=== PATIENT | female | born 1980 | race Hispanic/Latino ===

== ENCOUNTER 2020-05-28 10:55 | Emergency (ER) | payer OTHER ==
[~2020-05-28] VITALS: Ht 154.9 cm; Wt 72.6 kg
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
[2020-05-28] MEDS ORDERED: CYCLOBENZAPRINE10 MG PO (11:24)
== END 2020-05-28 11:47 | disposition home or self-care (01) ==
LOC: FSED 11:28
DX: S20.222A Contusion of left back wall of thorax, initial encounter (principal); W22.09XA Striking against other stationary object, initial encounter; Y93.19 Activity, other involving water and watercraft; Y92.828 Other wilderness area as the place of occurrence of the external cause
CPT/HCPCS: 99282

== ENCOUNTER 2021-06-14 20:28 | Emergency (ER) | payer OTHER ==
[~2021-06-14] VITALS: Ht 154.9 cm; Wt 72.6 kg
[~2021-06-14 20:28] MED LIST: CYCLOBENZAPRINE10 MG PO
[2021-06-14] MEDS ORDERED: KETOROLAC TROMETHAMINE 30 MG/ML VIAL IV STA (20:48)
[2021-06-14] MEDS ORDERED: KETOROLAC TROMETHAMINE 30 MG/ML VIAL ONE (21:06)
[2021-06-14] MEDS ORDERED: KETOROLAC TROME10 MG PO (22:08)
[2021-06-14] MEDS ORDERED: CEFDINIR300 MG PO (22:08)
== END 2021-06-14 22:30 | disposition home or self-care (01) ==
LOC: FSED 20:50
DX: M54.5 Low back pain (principal); N23 Unspecified renal colic; N39.0 Urinary tract infection, site not specified
CPT/HCPCS: 74176; 80053; 81003; 81025; 99284; J1885

== ENCOUNTER 2022-06-17 13:30 | Emergency (ER) | payer SELFPAY ==
[~2022-06-17] VITALS: Ht 154.9 cm; Wt 72.6 kg
[~2022-06-17 13:30] MED LIST changes: +CEFDINIR300 MG PO; +KETOROLAC TROME10 MG PO
[2022-06-17] MEDS ORDERED: DEXAMETHASONE SOD PHOS INJ 4 MG/ML SDV ONE (14:31)
[2022-06-17] MEDS ORDERED: METOCLOPRAMIDE HCL 10 MG/2ML VIAL ONE (14:31)
[2022-06-17] MEDS ORDERED: DIPHENHYDRAMINE HCL INJ 50 MG/ML VIAL ONE (14:32)
[2022-06-17] MEDS ORDERED: SODIUM CHLORIDE 0.9% 1000ML 1,000 ML ONE (14:32)
[2022-06-17] MEDS ORDERED: KETOROLAC TROMETHAMINE 30 MG/ML VIAL ONE (14:32)
[2022-06-17] MEDS ORDERED: ONDANSETRON ODT4 MG PO (16:02)
[2022-06-17] MEDS ORDERED: CYCLOBENZAPRINE10 MG PO (16:02)
[2022-06-17] MEDS ORDERED: FIORICET 50-301 EACH PO (16:04)
[2022-06-17 17:00] VITALS: BP 134/72
== END 2022-06-17 16:00 | disposition home or self-care (01) ==
LOC: FSED 13:44
DX: G43.909 Migraine, unspecified, not intractable, without status migrainosus (principal); M62.838 Other muscle spasm
CPT/HCPCS: 70450; 99283; J1100; J1200; J1885; J2765; J7030